=== PATIENT | male | born 1950 | race Caucasian/White ===

== ENCOUNTER 2021-03-26 09:59 | Inpatient (IN) | payer MEDICARE, OTHER ==
[~2021-03-26] VITALS: Ht 177.8 cm; Wt 74.4 kg
[2021-03-26 11:14] VITALS: BP 134/52
[2021-03-26] MEDS ORDERED: HYDROcodone/acetaminophen 10/325mg tab PO PRN (11:45)
[2021-03-26] MEDS ORDERED: dextrose ORAL solution 15 GM/59 ML bottle PO PRN (11:45)
[2021-03-26] MEDS ORDERED: magnesium hydroxide 30ml (MOM) UD suspension PO PRN (11:45)
[2021-03-26] MEDS ORDERED: mag hydrox/Alum hydrox/simeth 30ml oral suspension PO PRN (11:45)
[2021-03-26] MEDS ORDERED: dextrose 50%-water 50ml dispensing syringe IV PRN ×2 (11:45)
[2021-03-26] MEDS ORDERED: magnesium 4gm in 100ml NS 100 ML IV PRN (11:45)
[2021-03-26] MEDS ORDERED: MESSAGE TO PHARMACY PO ONE (11:45)
[2021-03-26] MEDS ORDERED: sodium chloride 0.45% 1,000 ML IV SCH (11:45)
[2021-03-26] MEDS ORDERED: potassium Cl 40MEQ/1/2NS 520ml 520 ML IV PRN ×2 (11:45)
[2021-03-26] MEDS ORDERED: acetaminophen 325mg tablet PO PRN ×2 (11:45)
[2021-03-26] MEDS ORDERED: glucagon, human recombinant 1mg kit SUBCUT PRN (11:45)
[2021-03-26] MEDS ORDERED: magnesium 2GM in 50ml NS 50 ML IV PRN (11:45)
[2021-03-26] MEDS ORDERED: ondansetron/PF 4mg/2ml inj IV PRN (11:45)
[2021-03-26] MEDS ORDERED: potassium Cl 20 mEq SR tablet PO PRN ×2 (11:45)
[2021-03-26 12:24] LABS: BASOPHILS # (AUTO) 0.1 X10'3 (0-0.2); BASOPHILS % (AUTO) 0.6 % (0-1); EOSINOPHILS % (AUTO) 0.2 % (0-6); HEMATOCRIT 29.3 % (42.0-52.0); HEMOGLOBIN 9.6 g/dl (14.0-17.9); LYMPHOCYTES # (AUTO) 0.7 X10'3 (1.1-4.8); LYMPHOCYTES % (AUTO) 7.6 % (21-51); MEAN CORPUSCULAR HEMOGLOBIN 34.9 PG (27.0-31.0); MEAN CORPUSCULAR HGB CONC 32.9 g/dL (33.0-36.5); MEAN CORPUSCULAR VOLUME 106.1 FL (78-98); MEAN PLATELET VOLUME 10.9 FL (7.4-10.4); MONOCYTES # (AUTO) 1.4 X10'3 (0-0.9); MONOCYTES % (AUTO) 14.8 % (2-12); NEUTROPHILS # (AUTO) 7.3 X10'3 (1.8-7.7); NEUTROPHILS % (AUTO) 76.8 % (42-75); PLATELET COUNT 65 X10'3 (140-440); RED BLOOD COUNT 2.76 X10'6 (4.70-6.10); RED CELL DISTRIBUTION WIDTH 14.1 % (11.5-14.5); WHITE BLOOD COUNT 9.5 X10'3 (4.5-11.0)
[2021-03-26] MEDS: normal saline 1000ml 1,000 ML IV SCH ×2 (12:30→21:55)
[2021-03-26 13:13] LABS: ALANINE AMINOTRANSFERASE 7 U/L (12-78); ALBUMIN 2.6 G/DL (3.4-5.0); ALBUMIN/GLOBULIN RATIO 0.7 (1.1-1.5); ALKALINE PHOSPHATASE 92 IU/L (46-116); ANION GAP 16 (8-16); ASPARTATE AMINO TRANSFERASE 26 U/L (10-37); BILIRUBIN,TOTAL 0.4 MG/DL (0.1-1.0); BLOOD UREA NITROGEN 78 MG/DL (7-18); BUN/CREATININE RATIO 13.6 (5.4-32.0); CALCIUM 8.9 MG/DL (8.5-10.1); CHLORIDE 94 MMOL/L (99-107); CREATININE 5.72 MG/DL (0.60-1.10); POTASSIUM 4.2 MMOL/L (3.5-5.1); SODIUM 129 MMOL/L (135-145); TOTAL CARBON DIOXIDE 18.9 MMOL/L (24-32); TOTAL PROTEIN 6.4 G/DL (6.4-8.2); eGFR 10 ML/MIN
[2021-03-26 13:19] LABS: GLUCOSE 593 MG/DL (70-104)
[2021-03-26] MEDS ORDERED: HYDR-4070 PO (13:25)
[2021-03-26] MEDS ORDERED: ATOR40TA72 PO (13:25)
[2021-03-26] MEDS ORDERED: FOLI0.8T22 PO (13:25)
[2021-03-26] MEDS ORDERED: CLOP75TA34 PO (13:25)
[2021-03-26] MEDS ORDERED: INSU100I29 SQ (13:25)
[2021-03-26] MEDS ORDERED: CARB1TAB42 PO (13:25)
[2021-03-26] MEDS ORDERED: FLO0.4C PO (13:25)
[2021-03-26] MEDS ORDERED: INSU100V13 SQ (13:25)
[2021-03-26] MEDS ORDERED: CARB-13 PO (13:25)
[2021-03-26] MEDS ORDERED: MEMA5TAB42 PO (13:25)
[2021-03-26] MEDS ORDERED: RIVA3CAP17 PO (13:25)
[2021-03-26] MEDS ORDERED: CARV25TA3 PO (13:25)
[2021-03-26] MEDS ORDERED: LISI20TA28 PO (13:25)
[2021-03-26] MEDS ORDERED: FURO80TA3 PO (13:25)
[2021-03-26] MEDS ORDERED: CEFD300C21 PO (13:25)
[2021-03-26] MEDS ORDERED: AMLO5TAB16 PO (13:25)
[2021-03-26] MEDS ORDERED: MIRA25TA PO (13:25)
[2021-03-26] MEDS ORDERED: SEVE800T28 PO (13:25)
[2021-03-26] MEDS ORDERED: vancomycin/NS 1 GM ADD-VANTAGE 250 ML IV PRN (13:40)
[2021-03-26] MEDS: insulin Lispro (HumaLOG) vial - multi-dose SQ SCH ×2 (13:44→19:22)
--- NOTE | 2021-03-26 13:48 | NUR ---
After speaking with patients family, primary rn discussed with other nursing staff and insulin dose was cutt in half. Pt will recieve 11units initially. Will continue to monitor blood glucose.
[2021-03-26] MEDS: heparin, porcine 5000 units/ml vial SQ SCH (16:00)
[2021-03-26] MEDS: piperacillin/tazo 3.375gm/50ml 50 ML IV SCH ×2 (16:30→23:56)
[2021-03-26] MEDS: sevelamer carbonate 800mg tablet PO SCH (17:49)
[2021-03-26 18:00] VITALS: BP 108/50
--- NOTE | 2021-03-26 19:12 | NUR ---
Problems reprioritized. Patient report given, questions answered & plan of care reviewed with haile de la o.
[2021-03-26] MEDS: K and/or MAG REPLACEMENT MC SCH (19:26)
[2021-03-26 19:39] VITALS: BP 131/53
[2021-03-26] MEDS: amLODIPine 5mg tablet PO SCH (19:41)
[2021-03-26] MEDS: carVEDilol 12.5mg tablet PO SCH (19:41)
[2021-03-26] MEDS: docusate sod 100mg capsule PO SCH (19:41)
[2021-03-26] MEDS: lisinopril 20mg tablet PO SCH (19:42)
[2021-03-26] MEDS: carbidopa/levodopa 50/200mg CR tablet PO SCH (19:42)
[2021-03-26] MEDS: insulin glargine (Lantus) pen - multi-dose SQ SCH (21:00)
[2021-03-26] MEDS: carbidopa/levodopa 10/100mg tab PO SCH (21:00)
[2021-03-26] MEDS: atorvastatin 20mg tablet PO SCH (21:55)
[2021-03-26] MEDS: donepezil 5mg tablet PO SCH (21:55)
[2021-03-26] MEDS: tamsulosin 0.4mg capsule PO SCH (21:55)
[2021-03-26] MEDS: hydrALAZINE 25 MG tablet PO SCH (22:01)
[2021-03-26] MEDS ORDERED: insulin glargine (Lantus) pen - multi-dose SQ ONE (22:15)
[2021-03-26] MEDS ORDERED: insulin Lispro (HumaLOG) vial - multi-dose SQ ONE (22:15)
--- NOTE | 2021-03-26 22:18 | NUR ---
Called Dr. Shelton to make him aware of the patient's [address] ordered 12 units of humalog and [address] aware that patient is on dialyisis and his GFR is 10.
[2021-03-27] VITALS: BP 128/49
[2021-03-27] MEDS: normal saline 1000ml 1,000 ML IV SCH ×2 (02:47→12:56)
[2021-03-27] MEDS: VANCOMYCIN LEVEL IV SCH (03:00)
--- NOTE | 2021-03-27 03:02 | NUR ---
Spoke with Dr. Shelton due to patient's blood sugar of 415. Ordered 12 units of humalog.
[2021-03-27] MEDS ORDERED: insulin Lispro (HumaLOG) vial - multi-dose SQ ONE (03:05)
--- NOTE | 2021-03-27 06:37 | NUR ---
Patient in room [facility] 354. I have received report from haile de la o and had the opportunity to ask questions and assume patient care.
[2021-03-27 07:06] LABS: BASOPHILS # (AUTO) 0.1 X10'3 (0-0.2); BASOPHILS % (AUTO) 0.9 % (0-1); EOSINOPHILS # (AUTO) 0.2 X10'3 (0-0.9); EOSINOPHILS % (AUTO) 2.4 % (0-6); HEMATOCRIT 26.6 % (42.0-52.0); HEMOGLOBIN 9.4 g/dl (14.0-17.9); LYMPHOCYTES # (AUTO) 0.9 X10'3 (1.1-4.8); LYMPHOCYTES % (AUTO) 8.8 % (21-51); MEAN CORPUSCULAR HEMOGLOBIN 35.7 PG (27.0-31.0); MEAN CORPUSCULAR HGB CONC 35.4 g/dL (33.0-36.5); MEAN CORPUSCULAR VOLUME 100.9 FL (78-98); MEAN PLATELET VOLUME 10.8 FL (7.4-10.4); MONOCYTES # (AUTO) 1.1 X10'3 (0-0.9); MONOCYTES % (AUTO) 11.8 % (2-12); NEUTROPHILS # (AUTO) 7.3 X10'3 (1.8-7.7); NEUTROPHILS % (AUTO) 76.1 % (42-75); PLATELET COUNT 95 X10'3 (140-440); RED BLOOD COUNT 2.63 X10'6 (4.70-6.10); RED CELL DISTRIBUTION WIDTH 13.5 % (11.5-14.5); WHITE BLOOD COUNT 9.7 X10'3 (4.5-11.0)
[2021-03-27 07:17] LABS: ALANINE AMINOTRANSFERASE 8 U/L (12-78); ALBUMIN 2.4 G/DL (3.4-5.0); ALBUMIN/GLOBULIN RATIO 0.6 (1.1-1.5); ALKALINE PHOSPHATASE 76 IU/L (46-116); ANION GAP 15 (8-16); ASPARTATE AMINO TRANSFERASE 31 U/L (10-37); BILIRUBIN,TOTAL 0.3 MG/DL (0.1-1.0); BLOOD UREA NITROGEN 88 MG/DL (7-18); BUN/CREATININE RATIO 14.2 (5.4-32.0); CALCIUM 8.5 MG/DL (8.5-10.1); CHLORIDE 97 MMOL/L (99-107); GLUCOSE 297 MG/DL (70-104); MAGNESIUM 2.4 MG/DL (1.5-2.4); SODIUM 134 MMOL/L (135-145); TOTAL CARBON DIOXIDE 21.6 MMOL/L (24-32); TOTAL PROTEIN 6.2 G/DL (6.4-8.2); VANCOMYCIN,RANDOM 24.6 UG/ML; eGFR 9 ML/MIN
[2021-03-27 07:18] LABS: POTASSIUM 3.7 MMOL/L (3.5-5.1)
--- NOTE | 2021-03-27 07:27 | NUR ---
Problems reprioritized. Patient report given, questions answered & plan of care reviewed with EUGENE Rivera.
[2021-03-27] MEDS: piperacillin/tazo 3.375gm/50ml 50 ML IV SCH ×2 (07:41→22:31)
[2021-03-27] MEDS: furosemide 40mg tablet PO SCH (07:42)
[2021-03-27] MEDS: memantine 5mg tablet PO SCH (07:43)
[2021-03-27] MEDS: clopidogrel 75mg tablet PO SCH (07:44)
[2021-03-27] MEDS: carVEDilol 12.5mg tablet PO SCH ×2 (07:44→22:28)
[2021-03-27] MEDS: sevelamer carbonate 800mg tablet PO SCH ×3 (07:47→22:24)
[2021-03-27] MEDS: amLODIPine 5mg tablet PO SCH ×2 (07:47→22:29)
[2021-03-27] MEDS: lisinopril 20mg tablet PO SCH ×2 (07:47→22:33)
[2021-03-27] MEDS: carbidopa/levodopa 50/200mg CR tablet PO SCH ×2 (07:48→22:30)
[2021-03-27] MEDS: carbidopa/levodopa 10/100mg tab PO SCH ×2 (07:48→13:00)
[2021-03-27] MEDS: folic acid/vitamin B complex w/vitamin C 0.8mg tablet PO SCH (07:49)
[2021-03-27] MEDS: mirabegron 25mg ER tablet PO SCH (07:49)
[2021-03-27] MEDS: heparin, porcine 5000 units/ml vial SQ SCH ×3 (07:51→16:00)
[2021-03-27] MEDS: docusate sod 100mg capsule PO SCH ×2 (07:52→22:30)
[2021-03-27] MEDS: K and/or MAG REPLACEMENT MC SCH ×2 (07:55→20:00)
[2021-03-27 08:00] VITALS: BP 115/48
[2021-03-27] MEDS ORDERED: albumin (human) 25% 100ml IV 100 ML IV PRN (08:00)
[2021-03-27] MEDS ORDERED: EPOETIN ALFA-EPBX 20,000 UNIT/ML 1 ML MDV IV ONE (08:00)
--- NOTE | 2021-03-27 08:55 | NUR ---
Spoke with the lab at [facility] and they will be sending over the blood cultures and urine on patient.
[2021-03-27] MEDS: insulin Lispro (HumaLOG) vial - multi-dose SQ SCH ×3 (09:37→22:01)
[2021-03-27 12:00] VITALS: BP 115/60
[2021-03-27] MEDS: heparin 1,000unit/ml 10ml vial 10 ML IV ONE ×2 (13:05→16:49)
[2021-03-27] MEDS: heparin 1,000 units/ml 10ml inj IV ONE ×2 (13:06→16:48)
--- NOTE | 2021-03-27 13:32 | NUR ---
Initial: Pt admit for sepsis secondary to UTI with ESRD on HD and T2DM, well controlled with A1c 7.0%. Of note patient's BG levels were elevated at 593 mg/dL on admit though pt was transferred from [facility]. Given A1c pt likely usually with good DM management. Written DM education with RD contact information placed in patient's chart. Pt currently on a heart healthy CHO controlled diet documented with average 50% PO intake. Per EMR pt independent with meals though A/O x 2 with h/o Parkinson's. Pt would likely benefit from assistance with meals. [facility] 03/27. Will continue to follow closely and make recommendations as appropriate pending additional trends in PO intake. Recommendations: 1) Continue CHO controlled diet and discontinue heart healthy diet; monitor renal labs and need for renal diet 2) Monitor need for ONS/additional protein 3) Monitor need for adaptive-robles given h/o Parkinson's; assist with meals and encourage PO intake 4) Continue routine Phos binder 5) Bowel care PRN 6) Scaled weight this admit; scaled weights with dialysis thereafter Addendum: 03/27/21 at [address] Amended: Links added.
[2021-03-27 17:11] LABS: CLARITY,URINE CLOUDY (Clear); COLOR,URINE YELLOW (Yellow); GLUCOSE, URINE 500 mg/dl (Neg); KETONES,URINE NEGATIVE (Neg); OCCULT BLOOD,URINE MODERATE (Neg); PROTEIN,URINE NEGATIVE (Neg); UA COLLECTION TYPE FOLEY CATH
[2021-03-27 17:12] LABS: LEUKOCYTE ESTERASE ,URINE SMALL (Neg); NITRITES, URINE NEGATIVE (Neg); UROBILINOGEN,URINE 0.2 E.U/dL (0.2-1.0)
[2021-03-27 17:20] LABS: BACTERIA,URINE 1+ /HPF (Neg); WBC,URINE TNTC /HPF (0-4)
[2021-03-27 17:21] LABS: AMORPHOUS URATES 1+; MUCUS STRANDS FEW /LPF (Neg); SQUAMOUS EPITHELIAL CELL,UR MODERATE /LPF (FEW); TRANSITIONAL EPI CELLS,URINE FEW /HPF
[2021-03-27 18:00] VITALS: BP 139/63
--- NOTE | 2021-03-27 18:42 | NUR ---
Problems reprioritized. Patient report given, questions answered & plan of care reviewed with haile de la o.
--- NOTE | 2021-03-27 21:36 | NUR ---
Covered patient's blood sugar of 286 because patient was receiving dialysis at dinner. Is just now going to eat.
[2021-03-27] MEDS: insulin glargine (Lantus) pen - multi-dose SQ SCH (22:04)
[2021-03-27] MEDS: lactobacillus rhamnosus 10,000 MMU CELLS/CAPSULE PO SCH (22:29)
--- NOTE | 2021-03-27 22:30 | NUR ---
Patient's tray was taken and the dinner slip was not in the room. Patient did not eat until after 2129 due to dialysis.
[2021-03-28] VITALS: BP 130/62
[2021-03-28] MEDS: donepezil 5mg tablet PO SCH ×2 (00:34→22:57)
[2021-03-28] MEDS: tamsulosin 0.4mg capsule PO SCH ×2 (00:34→22:58)
[2021-03-28] MEDS: hydrALAZINE 25 MG tablet PO SCH ×2 (00:35→23:11)
[2021-03-28] MEDS: atorvastatin 20mg tablet PO SCH ×2 (00:35→22:58)
[2021-03-28] MEDS: carbidopa/levodopa 10/100mg tab PO SCH ×4 (00:36→23:24)
[2021-03-28] MEDS: VANCOMYCIN LEVEL IV SCH (03:00)
[2021-03-28] MEDS: normal saline 1000ml 1,000 ML IV SCH (04:21)
--- NOTE | 2021-03-28 06:30 | NUR ---
Patient in room [facility] 354. I have received report from CHANTELLE KNIGHT and had the opportunity to ask questions and assume patient care.
--- NOTE | 2021-03-28 06:46 | NUR ---
Problems reprioritized. Patient report given, questions answered & plan of care reviewed with EUGENE Martinez.
--- NOTE | 2021-03-28 06:52 | NUR ---
Patient in room [facility] 354. I have received report from Martha KNIGHT and had the opportunity to ask questions and assume patient care.
[2021-03-28 07:11] LABS: ALANINE AMINOTRANSFERASE 7 U/L (12-78); ALBUMIN 2.1 G/DL (3.4-5.0); ALBUMIN/GLOBULIN RATIO 0.6 (1.1-1.5); ALKALINE PHOSPHATASE 84 IU/L (46-116); ANION GAP 13 (8-16); ASPARTATE AMINO TRANSFERASE 20 U/L (10-37); BASOPHILS # (AUTO) 0.1 X10'3 (0-0.2); BASOPHILS % (AUTO) 0.8 % (0-1); BILIRUBIN,TOTAL 0.5 MG/DL (0.1-1.0); BLOOD UREA NITROGEN 57 MG/DL (7-18); CALCIUM 8.3 MG/DL (8.5-10.1); CHLORIDE 101 MMOL/L (99-107); CREATININE 4.75 MG/DL (0.60-1.10); EOSINOPHILS # (AUTO) 0.1 X10'3 (0-0.9); EOSINOPHILS % (AUTO) 2.1 % (0-6); GLUCOSE 352 MG/DL (70-104); HEMATOCRIT 28.6 % (42.0-52.0); HEMOGLOBIN 9.7 g/dl (14.0-17.9); LYMPHOCYTES % (AUTO) 14.2 % (21-51); MAGNESIUM 2.3 MG/DL (1.5-2.4); MEAN CORPUSCULAR VOLUME 103.1 FL (78-98); MEAN PLATELET VOLUME 11.3 FL (7.4-10.4); MONOCYTES # (AUTO) 0.9 X10'3 (0-0.9); MONOCYTES % (AUTO) 13.1 % (2-12); NEUTROPHILS # (AUTO) 4.7 X10'3 (1.8-7.7); NEUTROPHILS % (AUTO) 69.8 % (42-75); PLATELET COUNT 63 X10'3 (140-440); POTASSIUM 3.8 MMOL/L (3.5-5.1); RED BLOOD COUNT 2.78 X10'6 (4.70-6.10); RED CELL DISTRIBUTION WIDTH 13.2 % (11.5-14.5); SODIUM 135 MMOL/L (135-145); TOTAL CARBON DIOXIDE 21.1 MMOL/L (24-32); TOTAL PROTEIN 5.7 G/DL (6.4-8.2); VANCOMYCIN,RANDOM 21.2 UG/ML; WHITE BLOOD COUNT 6.7 X10'3 (4.5-11.0); eGFR 12 ML/MIN
[2021-03-28 08:00] VITALS: BP 137/50
[2021-03-28] MEDS: K and/or MAG REPLACEMENT MC SCH ×2 (08:00→20:00)
[2021-03-28] MEDS: heparin, porcine 5000 units/ml vial SQ SCH ×3 (08:00→16:00)
[2021-03-28] MEDS: sevelamer carbonate 800mg tablet PO SCH ×3 (08:21→17:58)
[2021-03-28] MEDS: docusate sod 100mg capsule PO SCH ×2 (08:22→20:00)
[2021-03-28] MEDS: furosemide 40mg tablet PO SCH (08:22)
[2021-03-28] MEDS: piperacillin/tazo 3.375gm/50ml 50 ML IV SCH ×2 (08:23→20:08)
[2021-03-28] MEDS: carbidopa/levodopa 50/200mg CR tablet PO SCH ×2 (08:24→20:13)
[2021-03-28] MEDS: memantine 5mg tablet PO SCH (08:28)
[2021-03-28] MEDS: lisinopril 20mg tablet PO SCH ×2 (08:29→20:09)
[2021-03-28] MEDS: clopidogrel 75mg tablet PO SCH (08:29)
[2021-03-28] MEDS: carVEDilol 12.5mg tablet PO SCH ×2 (08:30→20:10)
[2021-03-28] MEDS: amLODIPine 5mg tablet PO SCH ×2 (08:31→20:09)
[2021-03-28] MEDS: lactobacillus rhamnosus 10,000 MMU CELLS/CAPSULE PO SCH ×2 (08:32→20:08)
[2021-03-28] MEDS: mirabegron 25mg ER tablet PO SCH (08:41)
[2021-03-28] MEDS: folic acid/vitamin B complex w/vitamin C 0.8mg tablet PO SCH (08:41)
--- NOTE | 2021-03-28 09:06 | NUR ---
CALLED DOWN TO [facility] FOLLOWING UP PATIENTS CULTURES AND SENSITIVITY, THERE IS NO NEW INFORMATION ON MICROBIAL SENSITIVITY OR IDENTIFICATION AT THIS TIME.
[2021-03-28] MEDS: insulin Lispro (HumaLOG) vial - multi-dose SQ SCH ×3 (09:43→19:50)
[2021-03-28 11:00] VITALS: BP 117/49
--- NOTE | 2021-03-28 17:22 | NUR ---
Student documentation: I have reviewed and agree with all interventions, assessments performed and documented by Nhan FLETCHER.
--- NOTE | 2021-03-28 17:31 | NUR ---
Held heparin morning and afternoon dose. Platelet levels 63
[2021-03-28 18:00] VITALS: BP 138/55
--- NOTE | 2021-03-28 18:53 | NUR ---
Problems reprioritized. Patient report given, questions answered & plan of care reviewed with Pat RN.
[2021-03-28] MEDS: insulin glargine (Lantus) pen - multi-dose SQ SCH (23:23)
[2021-03-29] VITALS: BP 128/53
--- NOTE | 2021-03-29 | NUR ---
received in shift change report heparin held as PLT at 63
[2021-03-29] MEDS: VANCOMYCIN LEVEL IV SCH (03:00)
[2021-03-29 05:56] LABS: BASOPHILS # (AUTO) 0.1 X10'3 (0-0.2); BASOPHILS % (AUTO) 1.1 % (0-1); EOSINOPHILS # (AUTO) 0.2 X10'3 (0-0.9); EOSINOPHILS % (AUTO) 3.3 % (0-6); HEMATOCRIT 28.1 % (42.0-52.0); HEMOGLOBIN 9.5 g/dl (14.0-17.9); LYMPHOCYTES # (AUTO) 0.8 X10'3 (1.1-4.8); MEAN CORPUSCULAR HEMOGLOBIN 34.8 PG (27.0-31.0); MEAN CORPUSCULAR HGB CONC 33.8 g/dL (33.0-36.5); MEAN CORPUSCULAR VOLUME 103.1 FL (78-98); MEAN PLATELET VOLUME 10.1 FL (7.4-10.4); MONOCYTES # (AUTO) 1.1 X10'3 (0-0.9); MONOCYTES % (AUTO) 15.4 % (2-12); NEUTROPHILS # (AUTO) 4.8 X10'3 (1.8-7.7); NEUTROPHILS % (AUTO) 68.2 % (42-75); PLATELET COUNT 66 X10'3 (140-440); RED BLOOD COUNT 2.73 X10'6 (4.70-6.10); RED CELL DISTRIBUTION WIDTH 13.7 % (11.5-14.5)
[2021-03-29 06:18] LABS: ALANINE AMINOTRANSFERASE 6 U/L (12-78); ALBUMIN 2.1 G/DL (3.4-5.0); ALBUMIN/GLOBULIN RATIO 0.6 (1.1-1.5); ALKALINE PHOSPHATASE 66 IU/L (46-116); ANION GAP 13 (8-16); ASPARTATE AMINO TRANSFERASE 15 U/L (10-37); BILIRUBIN,TOTAL 0.4 MG/DL (0.1-1.0); BLOOD UREA NITROGEN 70 MG/DL (7-18); CALCIUM 8.2 MG/DL (8.5-10.1); CHLORIDE 101 MMOL/L (99-107); CREATININE 5.81 MG/DL (0.60-1.10); GLUCOSE 210 MG/DL (70-104); MAGNESIUM 2.3 MG/DL (1.5-2.4); POTASSIUM 3.7 MMOL/L (3.5-5.1); SODIUM 136 MMOL/L (135-145); TOTAL CARBON DIOXIDE 21.8 MMOL/L (24-32); TOTAL PROTEIN 5.6 G/DL (6.4-8.2); VANCOMYCIN,RANDOM 18.9 UG/ML; eGFR 10 ML/MIN
--- NOTE | 2021-03-29 06:34 | NUR ---
Patient in room [facility] 354. I have received report from Pat RN and had the opportunity to ask questions and assume patient care.
[2021-03-29 08:00] VITALS: BP 129/36
[2021-03-29] MEDS: heparin, porcine 5000 units/ml vial SQ SCH ×3 (08:00→16:00)
[2021-03-29] MEDS: K and/or MAG REPLACEMENT MC SCH ×2 (08:00→21:42)
[2021-03-29] MEDS: carVEDilol 12.5mg tablet PO SCH ×2 (08:49→19:14)
[2021-03-29] MEDS: mirabegron 25mg ER tablet PO SCH (08:49)
[2021-03-29] MEDS: lactobacillus rhamnosus 10,000 MMU CELLS/CAPSULE PO SCH ×2 (08:49→19:13)
[2021-03-29] MEDS: furosemide 40mg tablet PO SCH (08:49)
[2021-03-29] MEDS: amLODIPine 5mg tablet PO SCH ×2 (08:49→19:19)
[2021-03-29] MEDS: docusate sod 100mg capsule PO SCH ×2 (08:49→19:22)
[2021-03-29] MEDS: carbidopa/levodopa 10/100mg tab PO SCH ×3 (08:50→21:41)
[2021-03-29] MEDS: carbidopa/levodopa 50/200mg CR tablet PO SCH ×2 (08:50→19:18)
[2021-03-29] MEDS: memantine 5mg tablet PO SCH (08:50)
[2021-03-29] MEDS: folic acid/vitamin B complex w/vitamin C 0.8mg tablet PO SCH (08:50)
[2021-03-29] MEDS: sevelamer carbonate 800mg tablet PO SCH ×3 (08:51→19:18)
[2021-03-29] MEDS: clopidogrel 75mg tablet PO SCH (08:51)
[2021-03-29] MEDS: piperacillin/tazo 3.375gm/50ml 50 ML IV SCH ×2 (08:51→19:20)
[2021-03-29] MEDS: lisinopril 20mg tablet PO SCH ×2 (08:51→19:17)
--- NOTE | 2021-03-29 09:40 | NUR ---
CALLED DOWN TO [facility] FOLLOWING UP PATIENTS CULTURES AND SENSITIVITY, THERE IS NO NEW INFORMATION ON MICROBIAL SENSITIVITY AT THIS TIME.
--- NOTE | 2021-03-29 10:54 | NUR ---
Patient blood glucose was not addressed at this time because after multiple bed changes back to back, late at eating breakfast, and woundcare for patient. Was unable to treat patients blood sugar in timely manner and will treat at lunch
[2021-03-29 11:00] VITALS: BP 118/44
--- NOTE | 2021-03-29 12:33 | NUR ---
Selvin consult: Pt noted w/ decubitus on sacrum, photo reviewed. No significant open wounds observed. Addendum: 03/29/21 at [address] Amended: Links added.
[2021-03-29] MEDS: insulin Lispro (HumaLOG) vial - multi-dose SQ SCH ×2 (14:08→19:25)
--- NOTE | 2021-03-29 17:58 | NUR ---
Student documentation: I have reviewed and agree with all interventions, assessments performed and documented by Leslie KNIGHT.
--- NOTE | 2021-03-29 18:29 | NUR ---
Problems reprioritized. Patient report given, questions answered & plan of care reviewed with EUGENE Encarnacion.
[2021-03-29 20:00] VITALS: BP 134/81
[2021-03-29] MEDS: insulin glargine (Lantus) pen - multi-dose SQ SCH (21:31)
[2021-03-29] MEDS: tamsulosin 0.4mg capsule PO SCH (21:34)
[2021-03-29] MEDS: atorvastatin 20mg tablet PO SCH (21:34)
[2021-03-29] MEDS: hydrALAZINE 25 MG tablet PO SCH (21:35)
[2021-03-29] MEDS: donepezil 5mg tablet PO SCH (21:35)
[2021-03-30] VITALS: BP 124/45
[2021-03-30] MEDS: VANCOMYCIN LEVEL IV SCH (03:00)
[2021-03-30 06:12] LABS: BASOPHILS # (AUTO) 0.1 X10'3 (0-0.2); BASOPHILS % (AUTO) 0.9 % (0-1); EOSINOPHILS # (AUTO) 0.4 X10'3 (0-0.9); EOSINOPHILS % (AUTO) 4.9 % (0-6); HEMATOCRIT 27.8 % (42.0-52.0); HEMOGLOBIN 9.7 g/dl (14.0-17.9); LYMPHOCYTES % (AUTO) 13.7 % (21-51); MEAN CORPUSCULAR HEMOGLOBIN 35.2 PG (27.0-31.0); MEAN CORPUSCULAR HGB CONC 34.9 g/dL (33.0-36.5); MEAN CORPUSCULAR VOLUME 100.9 FL (78-98); MEAN PLATELET VOLUME 10.9 FL (7.4-10.4); MONOCYTES # (AUTO) 0.9 X10'3 (0-0.9); MONOCYTES % (AUTO) 12.9 % (2-12); NEUTROPHILS # (AUTO) 4.9 X10'3 (1.8-7.7); NEUTROPHILS % (AUTO) 67.6 % (42-75); PLATELET COUNT 80 X10'3 (140-440); RED BLOOD COUNT 2.76 X10'6 (4.70-6.10); RED CELL DISTRIBUTION WIDTH 13.3 % (11.5-14.5); WHITE BLOOD COUNT 7.3 X10'3 (4.5-11.0)
[2021-03-30 06:33] LABS: ALANINE AMINOTRANSFERASE 6 U/L (12-78); ALBUMIN 2.1 G/DL (3.4-5.0); ALBUMIN/GLOBULIN RATIO 0.6 (1.1-1.5); ALKALINE PHOSPHATASE 65 IU/L (46-116); ANION GAP 13 (8-16); ASPARTATE AMINO TRANSFERASE 17 U/L (10-37); BILIRUBIN,TOTAL 0.5 MG/DL (0.1-1.0); BLOOD UREA NITROGEN 77 MG/DL (7-18); BUN/CREATININE RATIO 11.8 (5.4-32.0); CALCIUM 8.2 MG/DL (8.5-10.1); CHLORIDE 101 MMOL/L (99-107); CREATININE 6.54 MG/DL (0.60-1.10); GLUCOSE 139 MG/DL (70-104); MAGNESIUM 2.4 MG/DL (1.5-2.4); POTASSIUM 3.6 MMOL/L (3.5-5.1); SODIUM 137 MMOL/L (135-145); TOTAL CARBON DIOXIDE 22.7 MMOL/L (24-32); TOTAL PROTEIN 5.6 G/DL (6.4-8.2); VANCOMYCIN,RANDOM 15.9 UG/ML; eGFR 8 ML/MIN
--- NOTE | 2021-03-30 06:53 | NUR ---
Student documentation: I have reviewed and agree with all interventions, assessments performed and documented by Antonio Student Nurse.
--- NOTE | 2021-03-30 06:53 | NUR ---
Problems reprioritized. Patient report given, questions answered & plan of care reviewed with EUGENE Lawson.
--- NOTE | 2021-03-30 06:59 | NUR ---
Patient in room [facility]I 354. I have received report from Alysha KNIGHT and had the opportunity to ask questions and assume patient care.
--- NOTE | 2021-03-30 07:01 | NUR ---
Patient in room [facility]I 354. I have received report from Alysha KNIGHT and had the opportunity to ask questions and assume patient care.
[2021-03-30 07:33] LABS: PLATELET ESTIMATE DECREASED
[2021-03-30 08:00] VITALS: BP 145/51
[2021-03-30] MEDS: docusate sod 100mg capsule PO SCH ×2 (08:00→20:32)
[2021-03-30] MEDS: amLODIPine 5mg tablet PO SCH ×2 (08:00→20:37)
[2021-03-30] MEDS: heparin, porcine 5000 units/ml vial SQ SCH ×4 (08:00→23:54)
[2021-03-30] MEDS: lisinopril 20mg tablet PO SCH ×2 (08:00→20:34)
[2021-03-30] MEDS: K and/or MAG REPLACEMENT MC SCH ×2 (08:00→20:00)
[2021-03-30] MEDS ORDERED: albumin (human) 25% 100ml IV 100 ML IV PRN (08:20)
[2021-03-30] MEDS ORDERED: EPOETIN ALFA-EPBX 20,000 UNIT/ML 1 ML MDV IV ONE (08:20)
[2021-03-30] MEDS ORDERED: heparin 1,000 units/ml 10ml inj IV ONE ×2 (08:20)
[2021-03-30] MEDS: piperacillin/tazo 3.375gm/50ml 50 ML IV SCH ×2 (09:29→20:31)
[2021-03-30] MEDS: furosemide 40mg tablet PO SCH (09:30)
[2021-03-30] MEDS: lactobacillus rhamnosus 10,000 MMU CELLS/CAPSULE PO SCH ×2 (09:30→20:58)
[2021-03-30] MEDS: clopidogrel 75mg tablet PO SCH (09:30)
[2021-03-30] MEDS: mirabegron 25mg ER tablet PO SCH (09:32)
[2021-03-30] MEDS: carVEDilol 12.5mg tablet PO SCH ×2 (09:32→20:31)
[2021-03-30] MEDS: carbidopa/levodopa 50/200mg CR tablet PO SCH ×2 (09:32→20:57)
[2021-03-30] MEDS: folic acid/vitamin B complex w/vitamin C 0.8mg tablet PO SCH (09:32)
[2021-03-30] MEDS: memantine 5mg tablet PO SCH (09:32)
[2021-03-30] MEDS: sevelamer carbonate 800mg tablet PO SCH ×3 (09:33→21:10)
[2021-03-30] MEDS: carbidopa/levodopa 10/100mg tab PO SCH ×3 (09:33→20:50)
[2021-03-30] MEDS: insulin Lispro (HumaLOG) vial - multi-dose SQ SCH ×3 (09:55→20:25)
[2021-03-30 12:00] VITALS: BP 106/39
--- NOTE | 2021-03-30 12:00 | NUR ---
Patient in room [facility] 354. I have received report from Lulu KNIGHT and had the opportunity to ask questions and assume patient care.
--- NOTE | 2021-03-30 13:45 | NUR ---
Reassessment: Per [facility] notes pt with DTI to coccyx, left heel, and left sacrococcygeal. Patient's PO intake slightly fluctuates, currently averaging 65.5% PO intake since last RD assessment 03/27 meeting roughly 73% estimated energy needs and 63% estimated protein needs. Recommend Nepro BID to assist with meeting estimated nutrient needs. ONS to be sent pending physician approval in EMR. LBM 03/30, routine bowel care being held at this time. Will continue to follow and monitor need for additional nutrition intervention. Recommendations: 1) Continue CHO controlled diet and discontinue heart healthy diet; monitor renal labs and need for renal diet 2) Nepro BIDBD, pending physician approval in EMR 3) Monitor need for adaptive-robles given h/o Parkinson's; assist with meals and encourage PO intake 4) Continue routine Phos binder 5) Bowel care PRN 6) Scaled weight this admit; scaled weights with dialysis thereafter Addendum: 03/30/21 at [address] Amended: Links added.
--- NOTE | 2021-03-30 17:10 | NUR ---
Student documentation: I have reviewed and agree with all interventions, assessments performed and documented by Cecilia, nursing tech.
--- NOTE | 2021-03-30 17:10 | NUR ---
Student Medication Administration: For this medication-pass time frame, all medication were reviewed, dispensed, administered and documented per hospital policy by sandra Brooks.
--- NOTE | 2021-03-30 17:13 | NUR ---
PAGER ID: [phone] MESSAGE: Lewis Munoz-[id number]: Pt right eye red/pink itchy. Pt wants eye drops. He scratched it. Thank you Lulu [phone]
[2021-03-30] MEDS: NUT.TX.IMP.RENAL FXN,LAC-REDUC (Nepro) 237 ML VANILLA PO SCH (17:30)
--- NOTE | 2021-03-30 17:45 | NUR ---
Student documentation: I have reviewed and agree with all interventions, assessments performed and documented by Nhan Whitlock college student.
--- NOTE | 2021-03-30 18:40 | NUR ---
Problems reprioritized. Patient report given, questions answered & plan of care reviewed with Chris KNIGHT and Ron KNIGHT.
[2021-03-30 20:00] VITALS: BP 149/63
[2021-03-30] MEDS: moxifloxacin 0.5% ophthalmic drops 3ml RIGHTEYE SCH (20:35)
[2021-03-30] MEDS: tamsulosin 0.4mg capsule PO SCH (20:50)
[2021-03-30] MEDS: donepezil 5mg tablet PO SCH (20:50)
[2021-03-30] MEDS: atorvastatin 20mg tablet PO SCH (21:11)
[2021-03-30] MEDS: hydrALAZINE 25 MG tablet PO SCH (22:11)
[2021-03-30] MEDS: insulin glargine (Lantus) pen - multi-dose SQ SCH (22:17)
[2021-03-31] VITALS: BP 144/60
[2021-03-31] MEDS: VANCOMYCIN LEVEL IV SCH (03:00)
[2021-03-31] MEDS: HYDROcodone/acetaminophen 5mg/325mg tablet PO PRN (04:53)
[2021-03-31 06:17] LABS: BASOPHILS # (AUTO) 0.1 X10'3 (0-0.2); BASOPHILS % (AUTO) 1.3 % (0-1); EOSINOPHILS # (AUTO) 0.3 X10'3 (0-0.9); EOSINOPHILS % (AUTO) 4.1 % (0-6); HEMOGLOBIN 9.3 g/dl (14.0-17.9); LYMPHOCYTES % (AUTO) 16.6 % (21-51); MEAN CORPUSCULAR HEMOGLOBIN 34.6 PG (27.0-31.0); MEAN CORPUSCULAR HGB CONC 34.3 g/dL (33.0-36.5); MEAN CORPUSCULAR VOLUME 100.6 FL (78-98); MEAN PLATELET VOLUME 10.8 FL (7.4-10.4); MONOCYTES # (AUTO) 0.9 X10'3 (0-0.9); MONOCYTES % (AUTO) 14.2 % (2-12); NEUTROPHILS % (AUTO) 63.8 % (42-75); PLATELET COUNT 91 X10'3 (140-440); RED BLOOD COUNT 2.69 X10'6 (4.70-6.10); RED CELL DISTRIBUTION WIDTH 13.2 % (11.5-14.5); WHITE BLOOD COUNT 6.3 X10'3 (4.5-11.0)
--- NOTE | 2021-03-31 06:45 | NUR ---
Patient in room [facility] 354. I have received report from Chris KNIGHT and had the opportunity to ask questions and assume patient care.
[2021-03-31 06:46] LABS: ALANINE AMINOTRANSFERASE 7 U/L (12-78); ALBUMIN 2.2 G/DL (3.4-5.0); ALBUMIN/GLOBULIN RATIO 0.6 (1.1-1.5); ALKALINE PHOSPHATASE 65 IU/L (46-116); ANION GAP 9 (8-16); ASPARTATE AMINO TRANSFERASE 18 U/L (10-37); BILIRUBIN,TOTAL 0.4 MG/DL (0.1-1.0); BLOOD UREA NITROGEN 44 MG/DL (7-18); BUN/CREATININE RATIO 9.8 (5.4-32.0); CALCIUM 8.2 MG/DL (8.5-10.1); CHLORIDE 100 MMOL/L (99-107); CREATININE 4.49 MG/DL (0.60-1.10); GLUCOSE 194 MG/DL (70-104); MAGNESIUM 2.3 MG/DL (1.5-2.4); POTASSIUM 3.7 MMOL/L (3.5-5.1); SODIUM 135 MMOL/L (135-145); TOTAL CARBON DIOXIDE 26.2 MMOL/L (24-32); TOTAL PROTEIN 5.8 G/DL (6.4-8.2); VANCOMYCIN,RANDOM 11.8 UG/ML; eGFR 13 ML/MIN
--- NOTE | 2021-03-31 06:50 | NUR ---
I have given report report from EUGENE Seymour and had the opportunity to ask questions and assume patient care. I agree with the assessments, documentation, and Report given by EUGENE Velasquezcage fighter Nurse
[2021-03-31 06:54] LABS: LARGE PLATELETS FEW; PLATELET ESTIMATE DECREASED
[2021-03-31] MEDS: NUT.TX.IMP.RENAL FXN,LAC-REDUC (Nepro) 237 ML VANILLA PO SCH ×3 (07:30→18:30)
[2021-03-31 08:00] VITALS: BP 141/70
[2021-03-31] MEDS: K and/or MAG REPLACEMENT MC SCH ×2 (08:00→20:00)
[2021-03-31] MEDS: heparin, porcine 5000 units/ml vial SQ SCH ×2 (08:00→15:40)
[2021-03-31] MEDS ORDERED: vancomycin/NS 1 GM ADD-VANTAGE 250 ML IV ONE (08:15)
[2021-03-31] MEDS ORDERED: pneumococcal 23-VAL P-sac vacc 25 mcg/0.5ml vial IMVAC ONE (09:00)
--- NOTE | 2021-03-31 09:11 | NUR ---
Diabetes consult: Has been addressed this admit. Please see previous RD assessment. Addendum: 03/31/21 at [address] Amended: Links added.
[2021-03-31] MEDS: piperacillin/tazo 3.375gm/50ml 50 ML IV SCH (09:32)
[2021-03-31] MEDS: sevelamer carbonate 800mg tablet PO SCH ×3 (09:32→22:19)
[2021-03-31] MEDS: mirabegron 25mg ER tablet PO SCH (09:33)
[2021-03-31] MEDS: clopidogrel 75mg tablet PO SCH (09:34)
[2021-03-31] MEDS: carbidopa/levodopa 10/100mg tab PO SCH ×3 (09:34→22:27)
[2021-03-31] MEDS: lactobacillus rhamnosus 10,000 MMU CELLS/CAPSULE PO SCH ×2 (09:34→22:48)
[2021-03-31] MEDS: furosemide 40mg tablet PO SCH (09:35)
[2021-03-31] MEDS: carVEDilol 12.5mg tablet PO SCH ×2 (09:35→22:20)
[2021-03-31] MEDS: docusate sod 100mg capsule PO SCH ×2 (09:35→20:00)
[2021-03-31] MEDS: carbidopa/levodopa 50/200mg CR tablet PO SCH ×2 (09:35→22:27)
[2021-03-31] MEDS: amLODIPine 5mg tablet PO SCH ×2 (09:37→22:21)
[2021-03-31] MEDS: insulin Lispro (HumaLOG) vial - multi-dose SQ SCH ×3 (09:46→19:08)
[2021-03-31] MEDS: memantine 5mg tablet PO SCH (10:08)
[2021-03-31] MEDS: lisinopril 20mg tablet PO SCH ×2 (10:10→22:21)
[2021-03-31] MEDS: moxifloxacin 0.5% ophthalmic drops 3ml RIGHTEYE SCH ×2 (10:11→22:22)
[2021-03-31] MEDS: folic acid/vitamin B complex w/vitamin C 0.8mg tablet PO SCH (10:34)
[2021-03-31 11:00] VITALS: BP 134/56
--- NOTE | 2021-03-31 13:09 | NUR ---
Heparin not given , plt count is 91
--- NOTE | 2021-03-31 15:41 | NUR ---
Heparin not given , plt count is 91
--- NOTE | 2021-03-31 18:59 | NUR ---
Problems reprioritized. Patient report given, questions answered & plan of care reviewed with Ron KNIGHT.
[2021-03-31] MEDS: insulin glargine (Lantus) pen - multi-dose SQ SCH (22:04)
[2021-03-31] MEDS: hydrALAZINE 25 MG tablet PO SCH (22:22)
[2021-03-31] MEDS: donepezil 5mg tablet PO SCH (22:23)
[2021-03-31] MEDS: tamsulosin 0.4mg capsule PO SCH (22:23)
[2021-03-31] MEDS: atorvastatin 20mg tablet PO SCH (22:23)
[2021-04-01] MEDS: VANCOMYCIN LEVEL IV SCH (03:00)
--- NOTE | 2021-04-01 06:38 | NUR ---
Patient in room [facility] 354. I have received report from Ron KNIGHT and had the opportunity to ask questions and assume patient care.
[2021-04-01] MEDS: clopidogrel 75mg tablet PO SCH (07:57)
[2021-04-01] MEDS: lactobacillus rhamnosus 10,000 MMU CELLS/CAPSULE PO SCH ×2 (07:57→20:48)
[2021-04-01] MEDS: memantine 5mg tablet PO SCH (07:57)
[2021-04-01] MEDS: carbidopa/levodopa 50/200mg CR tablet PO SCH ×2 (07:58→20:49)
[2021-04-01] MEDS: furosemide 40mg tablet PO SCH (07:58)
[2021-04-01] MEDS: carbidopa/levodopa 10/100mg tab PO SCH ×2 (07:58→15:19)
[2021-04-01] MEDS: folic acid/vitamin B complex w/vitamin C 0.8mg tablet PO SCH (07:58)
[2021-04-01 08:00] VITALS: BP 154/64
[2021-04-01] MEDS: carVEDilol 12.5mg tablet PO SCH ×2 (08:00→20:48)
[2021-04-01] MEDS: heparin, porcine 5000 units/ml vial SQ SCH ×4 (08:00→23:42)
[2021-04-01] MEDS: amLODIPine 5mg tablet PO SCH ×2 (08:00→20:48)
[2021-04-01] MEDS: lisinopril 20mg tablet PO SCH ×2 (08:00→20:49)
[2021-04-01] MEDS: docusate sod 100mg capsule PO SCH ×2 (08:00→20:45)
[2021-04-01] MEDS: K and/or MAG REPLACEMENT MC SCH ×2 (08:00→20:00)
[2021-04-01] MEDS: moxifloxacin 0.5% ophthalmic drops 3ml RIGHTEYE SCH ×2 (08:00→20:49)
[2021-04-01] MEDS: sevelamer carbonate 800mg tablet PO SCH ×3 (08:04→20:51)
[2021-04-01] MEDS: mirabegron 25mg ER tablet PO SCH (08:05)
[2021-04-01 08:48] LABS: BASOPHILS # (AUTO) 0.1 X10'3 (0-0.2); BASOPHILS % (AUTO) 1.3 % (0-1); EOSINOPHILS # (AUTO) 0.4 X10'3 (0-0.9); HEMATOCRIT 27.3 % (42.0-52.0); HEMOGLOBIN 9.2 g/dl (14.0-17.9); LYMPHOCYTES # (AUTO) 1.2 X10'3 (1.1-4.8); LYMPHOCYTES % (AUTO) 16.6 % (21-51); MEAN CORPUSCULAR HEMOGLOBIN 34.3 PG (27.0-31.0); MEAN CORPUSCULAR HGB CONC 33.8 g/dL (33.0-36.5); MEAN CORPUSCULAR VOLUME 101.4 FL (78-98); MEAN PLATELET VOLUME 10.3 FL (7.4-10.4); MONOCYTES # (AUTO) 1.1 X10'3 (0-0.9); MONOCYTES % (AUTO) 14.6 % (2-12); NEUTROPHILS # (AUTO) 4.5 X10'3 (1.8-7.7); NEUTROPHILS % (AUTO) 62.5 % (42-75); PLATELET COUNT 128 X10'3 (140-440); RED BLOOD COUNT 2.69 X10'6 (4.70-6.10); RED CELL DISTRIBUTION WIDTH 13.3 % (11.5-14.5); WHITE BLOOD COUNT 7.2 X10'3 (4.5-11.0)
[2021-04-01] MEDS ORDERED: ceFAZolin/D5W- 1GM premix 50 ML IV SCH (09:20)
[2021-04-01] MEDS: insulin Lispro (HumaLOG) vial - multi-dose SQ SCH ×4 (09:37→21:22)
[2021-04-01 09:46] LABS: ALANINE AMINOTRANSFERASE 7 U/L (12-78); ALBUMIN 2.1 G/DL (3.4-5.0); ALBUMIN/GLOBULIN RATIO 0.6 (1.1-1.5); ALKALINE PHOSPHATASE 69 IU/L (46-116); ANION GAP 13 (8-16); ASPARTATE AMINO TRANSFERASE 19 U/L (10-37); BILIRUBIN,TOTAL 0.4 MG/DL (0.1-1.0); BLOOD UREA NITROGEN 51 MG/DL (7-18); BUN/CREATININE RATIO 10.2 (5.4-32.0); CALCIUM 8.3 MG/DL (8.5-10.1); CHLORIDE 102 MMOL/L (99-107); GLUCOSE 209 MG/DL (70-104); MAGNESIUM 2.1 MG/DL (1.5-2.4); POTASSIUM 3.9 MMOL/L (3.5-5.1); SODIUM 139 MMOL/L (135-145); TOTAL CARBON DIOXIDE 23.7 MMOL/L (24-32); TOTAL PROTEIN 5.6 G/DL (6.4-8.2); eGFR 11 ML/MIN
--- NOTE | 2021-04-01 10:30 | NUR ---
Patient is disoriented, confused, pulling of IV tube and crying for help. Potassium still 3.1, IV replacement done. Patient still NPO, failed speech evaluation this morning.Dr. Pérez was notified of patient status to include his confusion state, nutritional status, potassium level. I also requested for a mag protocol.
[2021-04-01 11:00] VITALS: BP 145/65
--- NOTE | 2021-04-01 12:24 | NUR ---
BP meds not given, patient having dialysis today. Dialysis nurse ok.
[2021-04-01] MEDS ORDERED: ceFAZolin 2gm in dextrose, iso 50 ML IV ONE (13:00)
[2021-04-01] MEDS: dextrose ORAL solution 15 GM/59 ML bottle PO PRN (17:25)
--- NOTE | 2021-04-01 17:50 | NUR ---
1703: Blood sugar was 67, Patient is alert and oriented. patient drank 4oz of apple juice. patient was given dex4, blood sugar rechecked after 15 min of dex 4 to be 93. patient was offered snack. Patient in no distress at this time.
[2021-04-01 20:00] VITALS: BP 154/56
[2021-04-01] MEDS: NUT.TX.IMP.RENAL FXN,LAC-REDUC (Nepro) 237 ML VANILLA PO SCH (20:00)
[2021-04-01] MEDS: hydrALAZINE 25 MG tablet PO SCH (20:49)
[2021-04-01] MEDS: atorvastatin 20mg tablet PO SCH (20:50)
[2021-04-01] MEDS: tamsulosin 0.4mg capsule PO SCH (20:50)
[2021-04-01] MEDS: donepezil 5mg tablet PO SCH (20:50)
[2021-04-01] MEDS: insulin glargine (Lantus) pen - multi-dose SQ SCH (21:21)
[2021-04-02] VITALS: BP 145/58
--- NOTE | 2021-04-02 06:59 | NUR ---
Patient in room [facility] 354. I have received report from Gay KNIGHT and had the opportunity to ask questions and assume patient care.
[2021-04-02 07:05] LABS: BASOPHILS # (AUTO) 0.1 X10'3 (0-0.2); EOSINOPHILS # (AUTO) 0.2 X10'3 (0-0.9); HEMATOCRIT 27.6 % (42.0-52.0); HEMOGLOBIN 9.4 g/dl (14.0-17.9); LYMPHOCYTES # (AUTO) 1.2 X10'3 (1.1-4.8); MEAN CORPUSCULAR HEMOGLOBIN 34.6 PG (27.0-31.0); MEAN CORPUSCULAR HGB CONC 33.9 g/dL (33.0-36.5); MEAN CORPUSCULAR VOLUME 102.2 FL (78-98); MEAN PLATELET VOLUME 10.1 FL (7.4-10.4); MONOCYTES # (AUTO) 0.9 X10'3 (0-0.9); MONOCYTES % (AUTO) 17.2 % (2-12); NEUTROPHILS # (AUTO) 2.6 X10'3 (1.8-7.7); NEUTROPHILS % (AUTO) 51.8 % (42-75); PLATELET COUNT 151 X10'3 (140-440); RED CELL DISTRIBUTION WIDTH 13.2 % (11.5-14.5)
[2021-04-02 07:28] LABS: ALANINE AMINOTRANSFERASE 9 U/L (12-78); ALBUMIN 2.2 G/DL (3.4-5.0); ALBUMIN/GLOBULIN RATIO 0.6 (1.1-1.5); ALKALINE PHOSPHATASE 67 IU/L (46-116); ANION GAP 8 (8-16); ASPARTATE AMINO TRANSFERASE 19 U/L (10-37); BILIRUBIN,TOTAL 0.3 MG/DL (0.1-1.0); BLOOD UREA NITROGEN 36 MG/DL (7-18); BUN/CREATININE RATIO 9.2 (5.4-32.0); CALCIUM 8.4 MG/DL (8.5-10.1); CHLORIDE 105 MMOL/L (99-107); CREATININE 3.91 MG/DL (0.60-1.10); GLUCOSE 180 MG/DL (70-104); POTASSIUM 3.9 MMOL/L (3.5-5.1); SODIUM 140 MMOL/L (135-145); TOTAL CARBON DIOXIDE 26.6 MMOL/L (24-32); TOTAL PROTEIN 5.6 G/DL (6.4-8.2); eGFR 15 ML/MIN
[2021-04-02 08:00] VITALS: BP 148/49
[2021-04-02] MEDS: K and/or MAG REPLACEMENT MC SCH ×2 (08:00→20:00)
[2021-04-02] MEDS: lactobacillus rhamnosus 10,000 MMU CELLS/CAPSULE PO SCH ×2 (08:55→21:43)
[2021-04-02] MEDS: carVEDilol 12.5mg tablet PO SCH ×2 (08:55→21:43)
[2021-04-02] MEDS: furosemide 40mg tablet PO SCH (08:55)
[2021-04-02] MEDS: clopidogrel 75mg tablet PO SCH (08:55)
[2021-04-02] MEDS: amLODIPine 5mg tablet PO SCH ×2 (08:55→21:43)
[2021-04-02] MEDS: docusate sod 100mg capsule PO SCH ×2 (08:55→21:43)
[2021-04-02] MEDS: carbidopa/levodopa 50/200mg CR tablet PO SCH ×2 (08:55→21:44)
[2021-04-02] MEDS: folic acid/vitamin B complex w/vitamin C 0.8mg tablet PO SCH (08:56)
[2021-04-02] MEDS: heparin, porcine 5000 units/ml vial SQ SCH ×3 (08:56→23:38)
[2021-04-02] MEDS: lisinopril 20mg tablet PO SCH ×2 (08:56→21:44)
[2021-04-02] MEDS: sevelamer carbonate 800mg tablet PO SCH ×3 (08:57→18:49)
[2021-04-02] MEDS: mirabegron 25mg ER tablet PO SCH (08:57)
[2021-04-02] MEDS: moxifloxacin 0.5% ophthalmic drops 3ml RIGHTEYE SCH ×2 (08:57→21:44)
[2021-04-02] MEDS: insulin Lispro (HumaLOG) vial - multi-dose SQ SCH ×3 (09:08→18:58)
[2021-04-02 11:00] VITALS: BP 143/89
--- NOTE | 2021-04-02 17:40 | NUR ---
Jayla RN notified me of patient blood sugar of 39mg/dl, She stated that she gave 2 bottles of dex4 crackers and milk, blood sugar rechecked and was 88. I went to check patient, patient is drinking milk, stable and in no distress.
[2021-04-02 18:00] VITALS: BP 112/69
--- NOTE | 2021-04-02 18:00 | NUR ---
Problems reprioritized. Patient report given,patient decrease to level 4 per protocol questions answered & plan of care reviewed with Haylie KNIGHT.
[2021-04-02] MEDS: atorvastatin 20mg tablet PO SCH (21:42)
[2021-04-02] MEDS: tamsulosin 0.4mg capsule PO SCH (21:42)
[2021-04-02] MEDS: hydrALAZINE 25 MG tablet PO SCH (21:42)
[2021-04-02] MEDS: donepezil 5mg tablet PO SCH (21:43)
[2021-04-02] MEDS: insulin glargine (Lantus) pen - multi-dose SQ SCH (21:51)
[2021-04-02] MEDS: NUT.TX.IMP.RENAL FXN,LAC-REDUC (Nepro) 237 ML VANILLA PO SCH (21:54)
[2021-04-03] VITALS: BP 126/58
[2021-04-03 05:33] LABS: BASOPHILS # (AUTO) 0.1 X10'3 (0-0.2); BASOPHILS % (AUTO) 1.2 % (0-1); EOSINOPHILS # (AUTO) 0.2 X10'3 (0-0.9); EOSINOPHILS % (AUTO) 4.6 % (0-6); HEMATOCRIT 27.1 % (42.0-52.0); HEMOGLOBIN 9.2 g/dl (14.0-17.9); LYMPHOCYTES # (AUTO) 1.2 X10'3 (1.1-4.8); LYMPHOCYTES % (AUTO) 23.2 % (21-51); MEAN CORPUSCULAR HEMOGLOBIN 34.7 PG (27.0-31.0); MEAN CORPUSCULAR HGB CONC 33.8 g/dL (33.0-36.5); MEAN CORPUSCULAR VOLUME 102.4 FL (78-98); MEAN PLATELET VOLUME 10.1 FL (7.4-10.4); MONOCYTES # (AUTO) 0.8 X10'3 (0-0.9); MONOCYTES % (AUTO) 14.7 % (2-12); NEUTROPHILS % (AUTO) 56.3 % (42-75); PLATELET COUNT 154 X10'3 (140-440); RED BLOOD COUNT 2.65 X10'6 (4.70-6.10); RED CELL DISTRIBUTION WIDTH 13.5 % (11.5-14.5); WHITE BLOOD COUNT 5.3 X10'3 (4.5-11.0)
[2021-04-03 05:49] LABS: ALANINE AMINOTRANSFERASE 6 U/L (12-78); ALBUMIN 2.1 G/DL (3.4-5.0); ALBUMIN/GLOBULIN RATIO 0.6 (1.1-1.5); ALKALINE PHOSPHATASE 75 IU/L (46-116); ANION GAP 11 (8-16); ASPARTATE AMINO TRANSFERASE 19 U/L (10-37); BILIRUBIN,TOTAL 0.3 MG/DL (0.1-1.0); BLOOD UREA NITROGEN 47 MG/DL (7-18); BUN/CREATININE RATIO 10.1 (5.4-32.0); CALCIUM 8.4 MG/DL (8.5-10.1); CHLORIDE 101 MMOL/L (99-107); CREATININE 4.64 MG/DL (0.60-1.10); GLUCOSE 240 MG/DL (70-104); POTASSIUM 3.9 MMOL/L (3.5-5.1); SODIUM 137 MMOL/L (135-145); TOTAL PROTEIN 5.8 G/DL (6.4-8.2); eGFR 12 ML/MIN
--- NOTE | 2021-04-03 06:38 | NUR ---
Patient in room [facility] 354. I have received report from Ron KNIGHT and had the opportunity to ask questions and assume patient care.
--- NOTE | 2021-04-03 06:44 | NUR ---
0700 AM NURSE NOTIFIED THAT PT WOULD LIKE TO SPEAK TO THE DOCTOR
--- NOTE | 2021-04-03 06:44 | NUR ---
0600 PT STATED HIS WANTS TO SPEAK TO THE DOCTOR ABOUT HIS CARE. CHARGE NURSE KIRA WAS NOTIFIED
[2021-04-03] MEDS: NUT.TX.IMP.RENAL FXN,LAC-REDUC (Nepro) 237 ML VANILLA PO SCH ×2 (07:30→17:30)
[2021-04-03 08:00] VITALS: BP 124/42
[2021-04-03] MEDS ORDERED: EPOETIN ALFA-EPBX 20,000 UNIT/ML 1 ML MDV IV ONE (08:00)
[2021-04-03] MEDS ORDERED: heparin 1,000unit/ml 10ml vial 10 ML IV ONE (08:00)
[2021-04-03] MEDS: amLODIPine 5mg tablet PO SCH ×2 (08:00→20:48)
[2021-04-03] MEDS: lisinopril 20mg tablet PO SCH ×2 (08:00→20:48)
[2021-04-03] MEDS ORDERED: heparin 1,000 units/ml 10ml inj IV ONE (08:00)
[2021-04-03] MEDS ORDERED: albumin (human) 25% 100ml IV 100 ML IV PRN (08:00)
[2021-04-03] MEDS: carVEDilol 12.5mg tablet PO SCH ×2 (08:00→20:46)
[2021-04-03] MEDS: K and/or MAG REPLACEMENT MC SCH ×2 (08:00→20:00)
[2021-04-03] MEDS: moxifloxacin 0.5% ophthalmic drops 3ml RIGHTEYE SCH ×2 (09:01→20:48)
[2021-04-03] MEDS: sevelamer carbonate 800mg tablet PO SCH ×3 (09:01→20:46)
[2021-04-03] MEDS: folic acid/vitamin B complex w/vitamin C 0.8mg tablet PO SCH (09:03)
[2021-04-03] MEDS: clopidogrel 75mg tablet PO SCH (09:03)
[2021-04-03] MEDS: furosemide 40mg tablet PO SCH (09:04)
[2021-04-03] MEDS: carbidopa/levodopa 50/200mg CR tablet PO SCH ×2 (09:04→20:48)
[2021-04-03] MEDS: lactobacillus rhamnosus 10,000 MMU CELLS/CAPSULE PO SCH ×2 (09:04→20:46)
[2021-04-03] MEDS: insulin Lispro (HumaLOG) vial - multi-dose SQ SCH ×3 (09:13→22:10)
[2021-04-03] MEDS: heparin, porcine 5000 units/ml vial SQ SCH ×3 (09:18→23:24)
[2021-04-03] MEDS: mirabegron 25mg ER tablet PO SCH (09:19)
[2021-04-03] MEDS: docusate sod 100mg capsule PO SCH ×2 (09:19→20:00)
--- NOTE | 2021-04-03 10:30 | NUR ---
BP Meds not given, patient having dialysis today. BP is 124/42. Notified Liseth KNIGHT (dialysis nurse)
[2021-04-03 11:00] VITALS: BP 148/50
--- NOTE | 2021-04-03 13:04 | NUR ---
Reassessment: Noted SB6 diet was added to diet order 04/02. Pt with significant improvement in PO intake documented with mostly 75-100% PO intake since 03/29. Noted pt documented with 0% PO intake at lunch 04/01 however documented to have consumed 52 g of CHO, likely charting error. Nepro BIDBD approved in EMR however kitchen not sending. D/w dietary to send ONS per rx. LBM 04/03. No additional nutrition intervention implemented at this time. Will continue to follow and make recommendations as appropriate. Recommendations: 1) Continue SB6 CHO controlled diet and discontinue heart healthy diet; monitor renal labs and need for renal diet 2) Nepro BIDBD; may not be indicated if pt continues with current trends in PO intake 3) Continue sippy cup and adaptive-robles given h/o Parkinson's; assist with meals and encourage PO intake 4) Continue routine Phos binder 5) Bowel care PRN 6) Scaled weight this admit; scaled weights with dialysis thereafter Addendum: 04/03/21 at [address] Amended: Links added.
--- NOTE | 2021-04-03 17:40 | NUR ---
Blood sugar is 233mg/dl, patient will be covered after dinner served as patient due bottom down at evening
--- NOTE | 2021-04-03 18:16 | NUR ---
Problems reprioritized. Patient report given, questions answered & plan of care reviewed with Ron KNIGHT.
[2021-04-03 20:45] VITALS: BP 152/68
[2021-04-03] MEDS: atorvastatin 20mg tablet PO SCH (20:47)
[2021-04-03] MEDS: tamsulosin 0.4mg capsule PO SCH (20:48)
[2021-04-03] MEDS: donepezil 5mg tablet PO SCH (20:48)
[2021-04-03] MEDS: insulin glargine (Lantus) pen - multi-dose SQ SCH (22:14)
[2021-04-03 22:15] VITALS: BP 130/53
[2021-04-03] MEDS: hydrALAZINE 25 MG tablet PO SCH (22:25)
[2021-04-04 06:45] LABS: BASOPHILS # (AUTO) 0.1 X10'3 (0-0.2); BASOPHILS % (AUTO) 1.1 % (0-1); EOSINOPHILS # (AUTO) 0.3 X10'3 (0-0.9); HEMATOCRIT 26.9 % (42.0-52.0); HEMOGLOBIN 9.3 g/dl (14.0-17.9); LYMPHOCYTES # (AUTO) 1.2 X10'3 (1.1-4.8); LYMPHOCYTES % (AUTO) 14.2 % (21-51); MEAN CORPUSCULAR HEMOGLOBIN 35.1 PG (27.0-31.0); MEAN CORPUSCULAR HGB CONC 34.7 g/dL (33.0-36.5); MEAN CORPUSCULAR VOLUME 101.1 FL (78-98); MEAN PLATELET VOLUME 9.8 FL (7.4-10.4); MONOCYTES # (AUTO) 1.1 X10'3 (0-0.9); MONOCYTES % (AUTO) 13.5 % (2-12); NEUTROPHILS # (AUTO) 5.8 X10'3 (1.8-7.7); NEUTROPHILS % (AUTO) 68.2 % (42-75); PLATELET COUNT 180 X10'3 (140-440); RED BLOOD COUNT 2.66 X10'6 (4.70-6.10); RED CELL DISTRIBUTION WIDTH 13.3 % (11.5-14.5); WHITE BLOOD COUNT 8.5 X10'3 (4.5-11.0)
[2021-04-04 06:51] LABS: ALANINE AMINOTRANSFERASE 6 U/L (12-78); ALBUMIN 2.3 G/DL (3.4-5.0); ALBUMIN/GLOBULIN RATIO 0.7 (1.1-1.5); ALKALINE PHOSPHATASE 84 IU/L (46-116); ANION GAP 9 (8-16); ASPARTATE AMINO TRANSFERASE 19 U/L (10-37); BILIRUBIN,TOTAL 0.3 MG/DL (0.1-1.0); BLOOD UREA NITROGEN 33 MG/DL (7-18); BUN/CREATININE RATIO 9.5 (5.4-32.0); CALCIUM 8.6 MG/DL (8.5-10.1); CHLORIDE 105 MMOL/L (99-107); CREATININE 3.46 MG/DL (0.60-1.10); GLUCOSE 157 MG/DL (70-104); POTASSIUM 3.9 MMOL/L (3.5-5.1); SODIUM 141 MMOL/L (135-145); TOTAL CARBON DIOXIDE 27.5 MMOL/L (24-32); TOTAL PROTEIN 5.8 G/DL (6.4-8.2); eGFR 17 ML/MIN
[2021-04-04 08:00] VITALS: BP 150/62
[2021-04-04] MEDS: K and/or MAG REPLACEMENT MC SCH ×2 (08:00→20:00)
[2021-04-04] MEDS: docusate sod 100mg capsule PO SCH ×2 (08:00→20:00)
[2021-04-04] MEDS: NUT.TX.IMP.RENAL FXN,LAC-REDUC (Nepro) 237 ML VANILLA PO SCH ×2 (09:05→17:56)
[2021-04-04] MEDS: carVEDilol 12.5mg tablet PO SCH ×2 (09:06→20:36)
[2021-04-04] MEDS: amLODIPine 5mg tablet PO SCH ×2 (09:06→20:45)
[2021-04-04] MEDS: clopidogrel 75mg tablet PO SCH (09:06)
[2021-04-04] MEDS: folic acid/vitamin B complex w/vitamin C 0.8mg tablet PO SCH (09:06)
[2021-04-04] MEDS: carbidopa/levodopa 50/200mg CR tablet PO SCH ×2 (09:06→20:36)
[2021-04-04] MEDS: lisinopril 20mg tablet PO SCH ×2 (09:07→20:36)
[2021-04-04] MEDS: sevelamer carbonate 800mg tablet PO SCH ×3 (09:08→18:08)
[2021-04-04] MEDS: mirabegron 25mg ER tablet PO SCH (09:08)
[2021-04-04] MEDS: moxifloxacin 0.5% ophthalmic drops 3ml RIGHTEYE SCH ×2 (09:10→20:45)
[2021-04-04] MEDS: heparin, porcine 5000 units/ml vial SQ SCH ×2 (09:10→16:51)
[2021-04-04] MEDS: lactobacillus rhamnosus 10,000 MMU CELLS/CAPSULE PO SCH ×2 (09:10→20:36)
[2021-04-04] MEDS: insulin Lispro (HumaLOG) vial - multi-dose SQ SCH ×3 (09:21→20:32)
[2021-04-04] MEDS: furosemide 40mg tablet PO SCH (12:50)
[2021-04-04 12:55] VITALS: BP 138/57
[2021-04-04] MEDS: HYDROcodone/acetaminophen 5mg/325mg tablet PO PRN (16:52)
[2021-04-04] MEDS: dextrose ORAL solution 15 GM/59 ML bottle PO PRN (18:04)
--- NOTE | 2021-04-04 19:07 | NUR ---
Gave report to Jessy KNIGHT
[2021-04-04 19:30] VITALS: BP 149/62
[2021-04-04] MEDS: atorvastatin 20mg tablet PO SCH (20:35)
[2021-04-04] MEDS: donepezil 5mg tablet PO SCH (20:35)
[2021-04-04] MEDS: tamsulosin 0.4mg capsule PO SCH (20:36)
[2021-04-04] MEDS: insulin glargine (Lantus) pen - multi-dose SQ SCH (23:09)
[2021-04-05] VITALS: BP_SYST 139; BP_DIAS 59; BP_DIAS 87
[2021-04-05] MEDS: hydrALAZINE 25 MG tablet PO SCH ×2 (00:25→22:01)
[2021-04-05] MEDS: heparin, porcine 5000 units/ml vial SQ SCH ×3 (00:26→17:34)
[2021-04-05 06:15] LABS: BASOPHILS # (AUTO) 0.1 X10'3 (0-0.2); EOSINOPHILS # (AUTO) 0.3 X10'3 (0-0.9); EOSINOPHILS % (AUTO) 4.3 % (0-6); HEMATOCRIT 27.7 % (42.0-52.0); HEMOGLOBIN 9.4 g/dl (14.0-17.9); LYMPHOCYTES # (AUTO) 1.4 X10'3 (1.1-4.8); LYMPHOCYTES % (AUTO) 22.6 % (21-51); MEAN CORPUSCULAR HEMOGLOBIN 34.6 PG (27.0-31.0); MEAN CORPUSCULAR HGB CONC 33.9 g/dL (33.0-36.5); MEAN CORPUSCULAR VOLUME 102.3 FL (78-98); MEAN PLATELET VOLUME 10.1 FL (7.4-10.4); MONOCYTES # (AUTO) 0.8 X10'3 (0-0.9); NEUTROPHILS # (AUTO) 3.8 X10'3 (1.8-7.7); NEUTROPHILS % (AUTO) 59.1 % (42-75); PLATELET COUNT 212 X10'3 (140-440); RED BLOOD COUNT 2.71 X10'6 (4.70-6.10); RED CELL DISTRIBUTION WIDTH 13.6 % (11.5-14.5); WHITE BLOOD COUNT 6.4 X10'3 (4.5-11.0)
[2021-04-05 06:29] LABS: ALANINE AMINOTRANSFERASE 9 U/L (12-78); ALBUMIN 2.4 G/DL (3.4-5.0); ALBUMIN/GLOBULIN RATIO 0.7 (1.1-1.5); ALKALINE PHOSPHATASE 89 IU/L (46-116); ANION GAP 10 (8-16); ASPARTATE AMINO TRANSFERASE 23 U/L (10-37); BILIRUBIN,TOTAL 0.3 MG/DL (0.1-1.0); BLOOD UREA NITROGEN 46 MG/DL (7-18); BUN/CREATININE RATIO 10.6 (5.4-32.0); CALCIUM 8.9 MG/DL (8.5-10.1); CHLORIDE 104 MMOL/L (99-107); CREATININE 4.35 MG/DL (0.60-1.10); GLUCOSE 121 MG/DL (70-104); POTASSIUM 3.8 MMOL/L (3.5-5.1); SODIUM 140 MMOL/L (135-145); TOTAL CARBON DIOXIDE 26.5 MMOL/L (24-32); TOTAL PROTEIN 5.9 G/DL (6.4-8.2); eGFR 13 ML/MIN
--- NOTE | 2021-04-05 06:49 | NUR ---
Patient in room [facility] 354. I have received report from EUGENE Jiménez and had the opportunity to ask questions and assume patient care.
[2021-04-05 07:00] VITALS: BP 141/58
[2021-04-05] MEDS: NUT.TX.IMP.RENAL FXN,LAC-REDUC (Nepro) 237 ML VANILLA PO SCH ×2 (07:30→17:30)
[2021-04-05] MEDS: K and/or MAG REPLACEMENT MC SCH ×2 (08:00→20:00)
[2021-04-05] MEDS: docusate sod 100mg capsule PO SCH ×3 (08:00→22:00)
[2021-04-05] MEDS: lactobacillus rhamnosus 10,000 MMU CELLS/CAPSULE PO SCH ×2 (09:25→21:59)
[2021-04-05] MEDS: sevelamer carbonate 800mg tablet PO SCH ×3 (09:25→17:35)
[2021-04-05] MEDS: clopidogrel 75mg tablet PO SCH (09:26)
[2021-04-05] MEDS: folic acid/vitamin B complex w/vitamin C 0.8mg tablet PO SCH (09:26)
[2021-04-05] MEDS: amLODIPine 5mg tablet PO SCH ×2 (09:26→22:00)
[2021-04-05] MEDS: carbidopa/levodopa 50/200mg CR tablet PO SCH ×2 (09:26→22:00)
[2021-04-05] MEDS: carVEDilol 12.5mg tablet PO SCH ×2 (09:26→21:59)
[2021-04-05] MEDS: furosemide 40mg tablet PO SCH (09:27)
[2021-04-05] MEDS: mirabegron 25mg ER tablet PO SCH (09:27)
[2021-04-05] MEDS: moxifloxacin 0.5% ophthalmic drops 3ml RIGHTEYE SCH ×2 (09:29→22:00)
[2021-04-05] MEDS: lisinopril 20mg tablet PO SCH ×2 (09:29→22:00)
[2021-04-05] MEDS: insulin Lispro (HumaLOG) vial - multi-dose SQ SCH ×3 (09:37→23:17)
[2021-04-05 12:00] VITALS: BP 149/87
--- NOTE | 2021-04-05 18:50 | NUR ---
Patient in room [facility] 354. I have received report from AIDAN KNIGHT and had the opportunity to ask questions and assume patient care.
[2021-04-05 20:00] VITALS: BP 158/51
[2021-04-05] MEDS: atorvastatin 20mg tablet PO SCH (22:01)
[2021-04-05] MEDS: tamsulosin 0.4mg capsule PO SCH (22:01)
[2021-04-05] MEDS: donepezil 5mg tablet PO SCH (22:01)
[2021-04-05] MEDS: insulin glargine (Lantus) pen - multi-dose SQ SCH (23:16)
[2021-04-06] VITALS: BP 158/58
[2021-04-06] MEDS: heparin, porcine 5000 units/ml vial SQ SCH ×3 (00:41→16:32)
--- NOTE | 2021-04-06 06:34 | NUR ---
Problems reprioritized. Patient report given, questions answered & plan of care reviewed with ANIL KNIGHT.
[2021-04-06] MEDS: NUT.TX.IMP.RENAL FXN,LAC-REDUC (Nepro) 237 ML VANILLA PO SCH ×2 (07:30→08:30)
[2021-04-06] MEDS: amLODIPine 5mg tablet PO SCH ×3 (08:00→20:20)
[2021-04-06] MEDS: moxifloxacin 0.5% ophthalmic drops 3ml RIGHTEYE SCH ×2 (08:00→20:17)
[2021-04-06] MEDS: K and/or MAG REPLACEMENT MC SCH ×2 (08:41→20:00)
[2021-04-06] MEDS: clopidogrel 75mg tablet PO SCH (09:16)
[2021-04-06] MEDS: lactobacillus rhamnosus 10,000 MMU CELLS/CAPSULE PO SCH ×2 (09:16→20:18)
[2021-04-06] MEDS: docusate sod 100mg capsule PO SCH ×2 (09:17→20:00)
[2021-04-06] MEDS: mirabegron 25mg ER tablet PO SCH (09:17)
[2021-04-06] MEDS: furosemide 40mg tablet PO SCH (09:17)
[2021-04-06] MEDS: sevelamer carbonate 800mg tablet PO SCH ×3 (09:17→19:00)
[2021-04-06] MEDS: carbidopa/levodopa 50/200mg CR tablet PO SCH ×2 (09:17→20:19)
[2021-04-06] MEDS: folic acid/vitamin B complex w/vitamin C 0.8mg tablet PO SCH (09:18)
[2021-04-06] MEDS: lisinopril 20mg tablet PO SCH ×2 (09:19→20:19)
[2021-04-06] MEDS: carVEDilol 12.5mg tablet PO SCH ×3 (09:20→20:18)
[2021-04-06] MEDS: insulin Lispro (HumaLOG) vial - multi-dose SQ SCH ×2 (09:43→19:39)
[2021-04-06] MEDS ORDERED: albumin (human) 25% 100ml IV 100 ML IV PRN ×2 (09:55→10:20)
[2021-04-06] MEDS ORDERED: EPOETIN ALFA-EPBX 20,000 UNIT/ML 1 ML MDV IV ONE ×2 (09:55→10:20)
[2021-04-06] MEDS ORDERED: heparin 1,000 units/ml 10ml inj IV ONE (10:20)
[2021-04-06] MEDS ORDERED: heparin 1,000unit/ml 10ml vial 10 ML IV ONE (10:20)
[2021-04-06] MEDS: HYDROcodone/acetaminophen 5mg/325mg tablet PO PRN (11:43)
[2021-04-06 11:48] VITALS: BP 146/48
[2021-04-06 12:18] VITALS: BP 150/71
[2021-04-06 20:00] VITALS: BP 149/67
[2021-04-06] MEDS: atorvastatin 20mg tablet PO SCH (20:18)
[2021-04-06] MEDS: donepezil 5mg tablet PO SCH (20:18)
[2021-04-06] MEDS: hydrALAZINE 25 MG tablet PO SCH (20:18)
[2021-04-06] MEDS: tamsulosin 0.4mg capsule PO SCH (20:19)
[2021-04-06] MEDS: insulin glargine (Lantus) pen - multi-dose SQ SCH (22:11)
[2021-04-07] VITALS: BP 141/61
[2021-04-07] MEDS: heparin, porcine 5000 units/ml vial SQ SCH ×3 (01:05→16:16)
[2021-04-07 06:00] VITALS: BP 165/69
--- NOTE | 2021-04-07 06:30 | NUR ---
Problems reprioritized. Patient report given, questions answered & plan of care reviewed with KENNETH KNIGHT.
--- NOTE | 2021-04-07 06:56 | NUR ---
Patient in room [facility] 354. I have received report from Gretta Glynn rn and had the opportunity to ask questions and assume patient care.
[2021-04-07] MEDS: NUT.TX.IMP.RENAL FXN,LAC-REDUC (Nepro) 237 ML VANILLA PO SCH ×2 (07:30→17:57)
[2021-04-07] MEDS: docusate sod 100mg capsule PO SCH ×2 (07:42→20:19)
[2021-04-07] MEDS: K and/or MAG REPLACEMENT MC SCH ×2 (08:00→20:00)
[2021-04-07] MEDS: lactobacillus rhamnosus 10,000 MMU CELLS/CAPSULE PO SCH ×2 (08:01→20:17)
--- NOTE | 2021-04-07 08:04 | NUR ---
Page Sent PAGER ID: [phone] MESSAGE: Em c LEON, DO YOU STILL WANT PT TO TAKE LASIX WITH HIS CURRENT KIDNEY STATUS GFR OF 13. MABELBERSPENSERN [id number]
[2021-04-07] MEDS: mirabegron 25mg ER tablet PO SCH (08:08)
[2021-04-07] MEDS: folic acid/vitamin B complex w/vitamin C 0.8mg tablet PO SCH (08:09)
[2021-04-07] MEDS: amLODIPine 5mg tablet PO SCH ×2 (08:11→20:19)
[2021-04-07] MEDS: clopidogrel 75mg tablet PO SCH (08:12)
[2021-04-07] MEDS: sevelamer carbonate 800mg tablet PO SCH ×3 (08:13→18:39)
[2021-04-07] MEDS: lisinopril 20mg tablet PO SCH ×2 (08:15→20:19)
[2021-04-07] MEDS: carbidopa/levodopa 50/200mg CR tablet PO SCH ×2 (08:15→20:19)
[2021-04-07] MEDS: moxifloxacin 0.5% ophthalmic drops 3ml RIGHTEYE SCH ×2 (08:20→20:28)
--- NOTE | 2021-04-07 08:27 | NUR ---
No mag or potassium replacement related to no current labs available. Addendum: 04/07/21 at 0828 by Angelic Valle - Oneyda WHELAN Amended: Links added.
--- NOTE | 2021-04-07 09:37 | NUR ---
Page Sent PAGER ID: [phone] MESSAGE: Em LEON, PLEASE CALL ME, THANKS
[2021-04-07] MEDS: furosemide 40mg tablet PO SCH (10:26)
[2021-04-07] MEDS: insulin Lispro (HumaLOG) vial - multi-dose SQ SCH ×3 (10:37→22:43)
[2021-04-07 11:00] VITALS: BP 129/60
--- NOTE | 2021-04-07 13:27 | NUR ---
Page Sent PAGER ID: [phone] MESSAGE: 354 c Munoz, wants to know if pt will get discharged today?
--- NOTE | 2021-04-07 14:28 | NUR ---
pt opti foams on left heel and left buttock/sacrum have been changed. added an opti to the right hip it was reddened. applied barrier cream buttocks was excoriated near rectum.
--- NOTE | 2021-04-07 17:23 | NUR ---
went to go take BS it came up as low on the glucometer twice. pt was cool clammy and sternal rub to arouse. pushed 50 ml of dextrose 50% and then took pt blood sugar, pt was 151 and aroused to voice. pt became more aware, supplemented with a snack. pt vials were stable BP 165/72. hr 65, spo2 98%, resp 13 on RA. pt is stable
--- NOTE | 2021-04-07 18:00 | NUR ---
Dr Kathleen wanted to hold insulin because of pt low BS. i was unable to complete this due to needing a resume time. i paged dr Kathleen again and have not heard from him. i will let shift mgr know that they need to non admin that and get a hold of night doctor to get a resume date.
--- NOTE | 2021-04-07 18:01 | NUR ---
Page Sent PAGER ID: [phone] MESSAGE: 354c Munoz, pt had a low non readable blood sugar twice, pushed 50 mL of dex, retook came up to 151. pt started to feel odd took again and BS was 63 and I pushed another 25 mL of dex it came up to 116. maicol [phone]
--- NOTE | 2021-04-07 18:28 | NUR ---
Page Sent PAGER ID: [phone] MESSAGE: Emc Tammy, how long do you want to hold pts diabetic meds? maicol [phone]
--- NOTE | 2021-04-07 19:13 | NUR ---
Problems reprioritized. Patient report given, questions answered & plan of care reviewed with Gretta Glynn rn.
[2021-04-07] MEDS: donepezil 5mg tablet PO SCH (20:17)
[2021-04-07] MEDS: atorvastatin 20mg tablet PO SCH (20:17)
[2021-04-07] MEDS: carVEDilol 12.5mg tablet PO SCH (20:18)
[2021-04-07] MEDS: tamsulosin 0.4mg capsule PO SCH (20:18)
[2021-04-07] MEDS: hydrALAZINE 25 MG tablet PO SCH (20:20)
[2021-04-07 20:46] VITALS: BP 136/64
[2021-04-07] MEDS: insulin glargine (Lantus) pen - multi-dose SQ SCH (22:42)
--- NOTE | 2021-04-07 22:50 | NUR ---
Student documentation: I have reviewed interventions, assessments performed and documented by aleksandar dodge [facility].
--- NOTE | 2021-04-07 22:51 | NUR ---
Student Medication Administration: For this medication-pass time frame, all medication were reviewed, dispensed, administered and documented per hospital policy by Anthony AMARAL [facility].
[2021-04-08] VITALS: BP 135/88
--- NOTE | 2021-04-08 00:10 | NUR ---
CALLED DR. LEA AND WAS INFORMED OF BLOOD SUGAR OF 548 WITH ORDER OF HUMULOG 8 UNITS SC AND 1L BOLUS NS.
[2021-04-08] MEDS: heparin, porcine 5000 units/ml vial SQ SCH ×3 (00:19→16:00)
[2021-04-08] MEDS ORDERED: normal saline 1000ml 1,000 ML IV ONE (00:40)
[2021-04-08] MEDS ORDERED: insulin Lispro (HumaLOG) vial - multi-dose SQ ONE (00:40)
--- NOTE | 2021-04-08 06:30 | NUR ---
Problems reprioritized. Patient report given, questions answered & plan of care reviewed with AIDAN KNIGHT.
--- NOTE | 2021-04-08 06:55 | NUR ---
Patient in room [facility] 354. I have received report from EUGENE Meeks and had the opportunity to ask questions and assume patient care.
[2021-04-08 07:00] VITALS: BP 117/34
[2021-04-08] MEDS: lactobacillus rhamnosus 10,000 MMU CELLS/CAPSULE PO SCH (07:17)
[2021-04-08] MEDS: mirabegron 25mg ER tablet PO SCH (07:17)
[2021-04-08] MEDS: sevelamer carbonate 800mg tablet PO SCH ×2 (07:17→14:38)
[2021-04-08] MEDS: folic acid/vitamin B complex w/vitamin C 0.8mg tablet PO SCH (07:17)
[2021-04-08] MEDS: carbidopa/levodopa 50/200mg CR tablet PO SCH (07:17)
[2021-04-08] MEDS: clopidogrel 75mg tablet PO SCH (07:17)
[2021-04-08] MEDS ORDERED: EPOETIN ALFA-EPBX 20,000 UNIT/ML 1 ML MDV IV ONE (07:25)
[2021-04-08] MEDS ORDERED: albumin (human) 25% 100ml IV 100 ML IV PRN (07:25)
[2021-04-08] MEDS ORDERED: heparin 1,000unit/ml 10ml vial 10 ML IV ONE (07:25)
[2021-04-08] MEDS ORDERED: heparin 1,000 units/ml 10ml inj IV ONE (07:25)
[2021-04-08] MEDS: NUT.TX.IMP.RENAL FXN,LAC-REDUC (Nepro) 237 ML VANILLA PO SCH (07:30)
[2021-04-08] MEDS: amLODIPine 5mg tablet PO SCH (07:43)
[2021-04-08] MEDS: furosemide 40mg tablet PO SCH (07:43)
[2021-04-08] MEDS: lisinopril 20mg tablet PO SCH (07:43)
[2021-04-08] MEDS: docusate sod 100mg capsule PO SCH (07:43)
[2021-04-08] MEDS: carVEDilol 12.5mg tablet PO SCH (07:43)
[2021-04-08] MEDS: K and/or MAG REPLACEMENT MC SCH (08:00)
--- NOTE | 2021-04-08 08:00 | NUR ---
PAGER ID: [phone] MESSAGE: Haris- Lewis Munoz- BG checked q2h. Was told in report you want to hold insulin but previous nurse did not put orders do to needing a stop date for hold.Do you want me to put order to hold insulin? 0700 BG was 302. Thank you- Ita [phone]
[2021-04-08 08:18] LABS: BASOPHILS # (AUTO) 0.1 X10'3 (0-0.2); BASOPHILS % (AUTO) 1.9 % (0-1); EOSINOPHILS # (AUTO) 0.2 X10'3 (0-0.9); EOSINOPHILS % (AUTO) 3.8 % (0-6); HEMATOCRIT 28.8 % (42.0-52.0); HEMOGLOBIN 9.9 g/dl (14.0-17.9); LYMPHOCYTES # (AUTO) 1.1 X10'3 (1.1-4.8); LYMPHOCYTES % (AUTO) 17.2 % (21-51); MEAN CORPUSCULAR HEMOGLOBIN 34.8 PG (27.0-31.0); MEAN CORPUSCULAR HGB CONC 34.2 g/dL (33.0-36.5); MEAN CORPUSCULAR VOLUME 101.6 FL (78-98); MEAN PLATELET VOLUME 9.6 FL (7.4-10.4); MONOCYTES # (AUTO) 0.8 X10'3 (0-0.9); MONOCYTES % (AUTO) 12.2 % (2-12); NEUTROPHILS % (AUTO) 64.9 % (42-75); PLATELET COUNT 198 X10'3 (140-440); RED BLOOD COUNT 2.83 X10'6 (4.70-6.10); RED CELL DISTRIBUTION WIDTH 13.7 % (11.5-14.5); WHITE BLOOD COUNT 6.2 X10'3 (4.5-11.0)
[2021-04-08 08:42] LABS: ALANINE AMINOTRANSFERASE 10 U/L (12-78); ALBUMIN 2.6 G/DL (3.4-5.0); ALBUMIN/GLOBULIN RATIO 0.7 (1.1-1.5); ALKALINE PHOSPHATASE 133 IU/L (46-116); ANION GAP 14 (8-16); ASPARTATE AMINO TRANSFERASE 23 U/L (10-37); BILIRUBIN,TOTAL 0.4 MG/DL (0.1-1.0); BLOOD UREA NITROGEN 61 MG/DL (7-18); BUN/CREATININE RATIO 13.5 (5.4-32.0); CALCIUM 9.2 MG/DL (8.5-10.1); CHLORIDE 103 MMOL/L (99-107); CREATININE 4.52 MG/DL (0.60-1.10); GLUCOSE 344 MG/DL (70-104); MAGNESIUM 2.2 MG/DL (1.5-2.4); POTASSIUM 4.5 MMOL/L (3.5-5.1); SODIUM 140 MMOL/L (135-145); TOTAL CARBON DIOXIDE 22.8 MMOL/L (24-32); TOTAL PROTEIN 6.3 G/DL (6.4-8.2); eGFR 13 ML/MIN
--- NOTE | 2021-04-08 09:07 | NUR ---
PAGER ID: [phone] MESSAGE: [id number]- Kamille Chew- has been on IV dilaudid and Toradol. Do you want to try PO pain med for home? None ordered. Allergic to codeine and hydrocodone. Has Tramadol that she takes at home. Thank you- Ita [phone] Addendum: 04/08/21 at 0907 by Ita Benavides RN incorrect patient.
--- NOTE | 2021-04-08 09:08 | NUR ---
PAGER ID: [phone] MESSAGE: Lewis Henao- [phone] BG is 413. Do you want me to start on hyperglycemic protocol again or hold insulin? He is a q2hr BG check. Thank you- Ita [phone]
--- NOTE | 2021-04-08 09:30 | NUR ---
Called to Dr. Kathleen regarding BG and insulin hold. Dr. Kathleen aware patient BG was 302 and 413 and okay for patient to continue back on hyperglycemic protocol and BG checks per protocol. DC q2hr BG checks.
[2021-04-08] MEDS: moxifloxacin 0.5% ophthalmic drops 3ml RIGHTEYE SCH (09:37)
[2021-04-08] MEDS: insulin Lispro (HumaLOG) vial - multi-dose SQ SCH ×2 (09:41→14:43)
--- NOTE | 2021-04-08 10:37 | NUR ---
hassock maker , Liseth at bedside.
[2021-04-08 12:00] VITALS: BP 120/53
--- NOTE | 2021-04-08 13:58 | NUR ---
skiver welt end, Liseth at bedside. Patient receiving dialysis.
--- NOTE | 2021-04-08 17:42 | NUR ---
Discussed with patient with spouse at bedside discharge instructions. Patient and spouse verbalized understanding and stated have no questions. Patient spouse states all equipment such as marla and sling delivered to home. Patient dc'd home with all personal belongings. Patient alert and oriented with no complaints at dc.
== END 2021-04-08 17:54 | disposition home health service (06) | DRG 871 ==
LOC: SUR 3N 10:47 → UNDOADMIN 10:47 → SUR 3N 11:48
PROVIDERS: ADMIT Internal Medicine; ATTEND Internal Medicine
PROC: 5A1D70Z Performance of Urinary Filtration, Intermittent, Less than 6 Hours Per Day (ICD-10-PCS; principal; 2021-03-27)
PROC: 5A1D70Z Performance of Urinary Filtration, Intermittent, Less than 6 Hours Per Day (ICD-10-PCS; 2021-03-30)
PROC: 5A1D70Z Performance of Urinary Filtration, Intermittent, Less than 6 Hours Per Day (ICD-10-PCS; 2021-04-01)
PROC: 5A1D70Z Performance of Urinary Filtration, Intermittent, Less than 6 Hours Per Day (ICD-10-PCS; 2021-04-03)
PROC: 5A1D70Z Performance of Urinary Filtration, Intermittent, Less than 6 Hours Per Day (ICD-10-PCS; 2021-04-06)
PROC: 5A1D70Z Performance of Urinary Filtration, Intermittent, Less than 6 Hours Per Day (ICD-10-PCS; 2021-04-08)
DX: A41.01 Sepsis due to Methicillin susceptible Staphylococcus aureus (principal); N18.6 End stage renal disease; N39.0 Urinary tract infection, site not specified; I12.0 Hypertensive chronic kidney disease with stage 5 chronic kidney disease or end stage renal disease; D63.8 Anemia in other chronic diseases classified elsewhere; E11.22 Type 2 diabetes mellitus with diabetic chronic kidney disease; D69.6 Thrombocytopenia, unspecified; E78.5 Hyperlipidemia, unspecified; G20 Parkinson's disease; Z99.2 Dependence on renal dialysis; Z79.4 Long term (current) use of insulin; I69.392 Facial weakness following cerebral infarction
CPT/HCPCS: 36415; 80053; 80202; 81001; 82948; 83036; 83605; 83735; 84100; 85008; 85025; 87040; 87081; 87088; 90732; 97110; 97116; 97163; 97530; 97535; G0257; G0378; J1644; J1815; J2543; J3370; J7030; Q4081